=== PATIENT | female | born 1975 | race African-American/Black ===

== ENCOUNTER 2018-07-01 16:12 | Emergency (ER) | payer OTHER ==
[2018-07-01] MEDS ORDERED: Azithromycin 250 MG TAB ONE (17:04)
[2018-07-01] MEDS ORDERED: cefTRIAXone\\ROCEPHIN 250 MG VIAL ONE (17:04)
[2018-07-01] MEDS ORDERED: Lidocaine 1% MPF 2 ML VIAL ONE (17:04)
[2018-07-01 17:13] LABS: Bilirubin Negative (Negative); Blood, Urine Negative (Negative); Clarity Clear (Clear); Glucose, Urine (Dipstick) Negative (Negative); Leukocyte Small (Negative); Nitrite Negative (Negative); Pregnancy Test - Urine (BHCG) Negative (Negative); Pregu Control Background? CLEAR/WHITE (CLR/WHITE); Pregu Control Bar Appear? YES (CONTROL BAR); Protein, Urine (Dipstick) Negative (Neg-Trace); Specific Gravity 1.015 (1.002-1.036); Specific Gravity, Urine 1.015 (1.005-1.030); Urobilinogen 0.2 mg/dL (0.2-1.0)
[2018-07-01 17:18] LABS: Bacteria/HPF Rare-Few HPF (None Seen); Oval Fat Bodies/HPF Rare HPF (None Seen); RBC/HPF 0-3 HPF (0-3); Squamous Epithelial 0-3 HPF (0-3); WBC/HPF 0-3 HPF (0-3)
[2018-07-04 04:18] LABS: Chlamydia by PCR Not Detected (NotDetected); GC by PCR Not Detected (NotDetected)
== END 2018-07-01 17:35 | disposition home or self-care (01) ==
LOC: SCSER 16:12
DX: N89.8 Other specified noninflammatory disorders of vagina (principal); K21.9 Gastro-esophageal reflux disease without esophagitis
CPT/HCPCS: 81003; 81015; 81025; 87480; 87491; 87510; 87591; 87660; 96372; J0696; J2001